=== PATIENT | male | born 1950 | race Caucasian/White ===

== ENCOUNTER 2018-06-09 20:26 | Observation (INO) | payer OTHER ==
--- NOTE | 2018-06-09 20:49 | EDPHY ---
H & P Stated Complaint: fall with sz, pt c/o L rib pain Time Seen by Provider: 06/09/18 20:35 HPI/ROS: CHIEF COMPLAINT: Left rib pain post seizure activity HISTORY OF PRESENT ILLNESS: 68-year-old male history of seizure disorder, in the ER with his roommates who describe breakthrough seizure this afternoon, witnessed, fell forward impacting his left ribs against a small refrigerator. He has had increasing amount of breakthrough seizures this week home and roommates express concern about him returning home as he has been compliant with medications and has had an increase in his breakthrough seizures. No head injury. No midline C-spine pain or injury. Currently answering questions appropriately. No incontinence. No oral trauma. PRIMARY CARE PROVIDER: REVIEW OF SYSTEMS: A ten point review of systems was performed and is negative with the exception of the items mentioned in the HPI PAST MEDICAL/SURGICAL HISTORY: Seizure disorder. Traumatic brain injury. Lamictal therapy. History of encephalopathy. SOCIAL HISTORY: denies alcohol use at time of incident PHYSICAL EXAM 1) GENERAL: Well-developed, well-nourished, alert and oriented. Appears to be in no acute distress. Answering questions appropriately. Smiling, making jokes appears well 2) HEAD: Normocephalic, atraumatic 3) HEENT: Pupils equal, round, reactive to light bilaterally. Negative Horners. Nasopharynx, oropharynx, clear. No deformity or angulation of nose. No septal hematoma. No rhinorrhea. No oral trauma. Ears bilaterally with normal tympanic membranes. No hemotympanum. No fluid or blood in the external auditory canal. No raccoon eyes. No Alamo sign. Poor dentition, TMJ bilaterally nontender, facial bones nontender including the zygomatic arch, maxilla mandible. 4) NECK: No cervical collar is on. Posterior cervical spine is nontender, no stepoff, no effusion. Full range of motion which does not elicit any midline cervical spine pain, no posterior midline tenderness, no step-off. 5) LUNGS: Clear to auscultation bilaterally, no wheezes, no rhonchi, no retractions. Tender to palpation left mid clavicular line with no crepitus No obvious signs of trauma. No flaring, no grunting. Moving symmetrically. No crepitus. 6) HEART: [Regular rate and rhythm, 7) ABDOMEN: No guarding, no rebound, no focal tenderness, no peritoneal signs, no signs of trauma, no ecchymosis 8) MUSCULOSKELETAL: Left forearm abrasion with no underlying osseous discomfort. Otherwise Moving all extremities, no focal areas of tenderness, no obvious trauma. 9) BACK:.No midline vertebral tenderness, no fluctuance, no step-off, no obvious trauma, no visual or palpable abnormality. 10) SKIN: No laceration. No abrasion 11) NEURO: Awake, alert, and oriented to person, place and time. Answers questions appropriately. There were no obvious focal neurologic abnormalities. No cerebellar dysfunction. Cranial nerves 2 through to 12 intact. Normal steady gait. Upper and lower extremities bilaterally with strength 5 / 5, reflexes 2+. DIFFERENTIAL DIAGNOSIS: In no particular order including but not limited to breakthrough seizure, cardiac dysrhythmia, OR, rib fracture, rib contusion - Personal History Current Tetanus/Diphtheria Vaccine: Yes - Medical/Surgical History Hx Asthma: No Hx Chronic Respiratory Disease: No Hx Diabetes: No Hx Cardiac Disease: No Hx Renal Disease: No Hx Cirrhosis: No Hx Alcoholism: Yes Hx HIV/AIDS: No Hx Splenectomy or Spleen Trauma: No Other PMH: TBI, seizures, etoh - Social History Smoking Status: Current every day smoker Constitutional: Initial Vital Signs Temperature (C) 36.6 C 06/09/18 20:28 Heart Rate 70 06/09/18 20:28 Respiratory Rate 20 06/09/18 20:28 Blood Pressure 160/98 H 06/09/18 20:28 O2 Sat (%) 93 06/09/18 20:28 O2 Delivery Mode Room Air Allergies/Adverse Reactions: No Known Allergies Allergy (Verified 06/09/18 20:31) Home Medications: Medication Instructions Recorded Nicotine [Nicoderm Cq 7 mg (*)] 7 mg TD DAILY 08/28/16 Simvastatin 40 mg PO HS 08/28/16 Topiramate [Topamax 100MG (*)] 250 mg PO DAILY 08/28/16 Topiramate [Topamax 100MG (*)] 350 mg PO HS 08/29/16 lamoTRIgine [LamICTAL 100 MG (*)] 100 mg PO DAILY #0 tab 09/02/16 lamoTRIgine [LamICTAL 100 MG (*)] 150 mg PO HS #30 tab 09/02/16 Medical Decision Making - Diagnostics Imaging Results: Imaging Impressions Ribs w/Chest X-Ray 06/09/18 20:45 Impression: 1. No active cardiopulmonary disease seen. 2. No evidence of left rib fracture. Images reviewed myself ED Course/Re-evaluation: 9:50 p.m.: Re-evaluation, patient is feeling well. The roommates the patient expressed concern over his increase in breakthrough seizures over the past week in the presence of being compliant with medications. They do not feel he can be safely discharged home. Case was discussed with secondary supervising physician Dr. Matthew in the ER. I spoke with the [facility] physician at this time was informed that the patient could stay at [facility]. 10:07 p.m.: Called emergently to the patient's bedside as he was actively seizing. Given Ativan. Will plan on admission. 10:14 p.m.: Consultation with hospitalist Dr. Coffman who has kindly agreed to admit patient - Data Points Laboratory Results: Laboratory Results 06/09/18 21:06 06/09/18 20:55 06/09/18 06/09/18 06/09/18 21:08 21:06 20:58 WBC 8.37 10^3/uL 10^3/uL (3.80-9.50) RBC 4.66 10^6/uL 10^6/uL (4.40-6.38) Hgb 12.7 g/dL L g/dL (13.7-17.5) Hct 40.5 % % (40.0-51.0) MCV 86.9 fL fL (81.5-99.8) MCH 27.3 pg L pg (27.9-34.1) MCHC 31.4 g/dL L g/dL (32.4-36.7) RDW 16.7 % H % (11.5-15.2) Plt Count 193 10^3/uL 10^3/uL (150-400) MPV 10.0 fL fL (8.7-11.7) Neut % (Auto) 76.8 % H % (39.3-74.2) Lymph % (Auto) 13.5 % L % (15.0-45.0) [place] % (Auto) 6.6 % % (4.5-13.0) Eos % (Auto) 1.9 % % (0.6-7.6) Baso % (Auto) 0.6 % % (0.3-1.7) Nucleat RBC Rel Count 0.0 % % (0.0-0.2) Absolute Neuts (auto) 6.43 10^3/uL 10^3/uL (1.70-6.50) Absolute Lymphs (auto) 1.13 10^3/uL 10^3/uL (1.00-3.00) Absolute Monos (auto) 0.55 10^3/uL 10^3/uL (0.30-0.80) Absolute Eos (auto) 0.16 10^3/uL 10^3/uL (0.03-0.40) Absolute Basos (auto) 0.05 10^3/uL 10^3/uL (0.02-0.10) Absolute Nucleated RBC 0.00 10^3/uL 10^3/uL (0-0.01) Immature Gran % 0.6 % % (0.0-1.1) Immature Gran # 0.05 10^3/uL 10^3/uL (0.00-0.10) Sodium Potassium Chloride Carbon Dioxide Anion Gap BUN Creatinine Estimated GFR Glucose Calcium POC Troponin I 0.00 ng/mL ng/mL 0.01 ng/mL ng/mL (0.00-0.08) (0.00-0.08) Lamotrigine Ethyl Alcohol 06/09/18 06/09/18 20:55 20:55 WBC RBC Hgb Hct MCV MCH MCHC RDW Plt Count MPV Neut % (Auto) Lymph % (Auto) [place] % (Auto) Eos % (Auto) Baso % (Auto) Nucleat RBC Rel Count Absolute Neuts (auto) Absolute Lymphs (auto) Absolute Monos (auto) Absolute Eos (auto) Absolute Basos (auto) Absolute Nucleated RBC Immature Gran % Immature Gran # Sodium 140 mEq/L mEq/L (135-145) Potassium 4.5 mEq/L mEq/L (3.3-5.0) Chloride 112 mEq/L H mEq/L (97-110) Carbon Dioxide 19 mEq/l L mEq/l (22-31) Anion Gap 9 mEq/L mEq/L (8-16) BUN 17 mg/dL mg/dL (7-23) Creatinine 1.3 mg/dL mg/dL (0.7-1.3) Estimated GFR 55 Glucose 96 mg/dL mg/dL (70-100) Calcium 9.1 mg/dL mg/dL (8.5-10.4) POC Troponin I Lamotrigine Pending Ethyl Alcohol < 10 mg/dL mg/dL (0-10) Medications Given: Discontinued Medications Lorazepam (Ativan Injection) 1 mg IVP ONCE ONE Stop: 06/09/18 22:16 Last Admin: 06/09/18 22:16 Dose: 1 mg Point of Care Test Results: Chemistry 06/09/18 06/09/18 21:08 20:58 POC Troponin I 0.00 ng/mL ng/mL 0.01 ng/mL ng/mL (0.00-0.08) (0.00-0.08) Departure - Departure Disposition: [facility] Acute Clinical Impression: Recurrent seizures, History of traumatic brain injury Condition: Fair
--- NOTE | 2018-06-09 21:07 | CPEKG ---
Heart Rate: 73 RR Interval: 822 P-R Interval: 184 QRSD Interval: 118 QT Interval: 400 QTC Interval: 441 P [place]: 73 QRS [place]: 19 T Wave [place]: -43 EKG Severity - ABNORMAL ECG - EKG Impression: SINUS RHYTHM EKG Impression: NONSPECIFIC INTRAVENTRICULAR CONDUCTION DELAY EKG Impression: INFERIOR INFARCT, AGE INDETERMINATE Electronically Signed By: Noelle Matthew 09-Jun-2018 22:53:25
[2018-06-09 21:13] LABS: PLATELET COUNT 193 10^3/uL (150-400)
[2018-06-09] MEDS ORDERED: LORazepam 2 MG/ML INJ ONE (22:11)
[2018-06-09] MEDS ORDERED: LORazepam 2 MG/ML INJ IVP ONE (22:15)
[2018-06-09] MEDS ORDERED: ACETAMINOPHEN 325 MG TAB PO PRN (22:23)
[2018-06-09] MEDS ORDERED: ONDANSETRON DISINTEGRATING 4 MG TAB PO PRN (22:23)
[2018-06-09] MEDS ORDERED: ONDANSETRON 4 MG/2 ML VIAL IVP PRN (22:23)
--- NOTE | 2018-06-09 23:52 | PDGENHP ---
History and Physical - Chief Complaint Seizure - History of Present Illness 68 yo M w/ hx of TBI and seizure d/o presents after a seizure. Patient is post- ictal during my evaluation an unable to provide additional history. History obtained from ED provider note. Per report, patient suffered a breakthrough seizure this afternoon. His roommates state he had a few other seizures this week as well. They think he has been compliant with his medications but cannot be sure. The patient himself cannot confirm his medications for me at this time. While in the ED the patient experienced a witnessed seizure. This was treated with lorazepam and aborted quickly. Case discussed with TRICIA Gutierrez, previous records reviewed. History Information - Allergies/Home Medication List Allergies/Adverse Reactions: No Known Allergies Allergy (Verified 06/09/18 20:31) Home Medications: Nicotine [Nicoderm Cq 7 mg (*)] 7 mg TD DAILY 08/28/16 [Last Taken Unknown] Simvastatin 40 mg PO HS 08/28/16 [Last Taken 08/27/16] Topiramate [Topamax 100MG (*)] 250 mg PO DAILY 08/28/16 [Last Taken Unknown] Topiramate [Topamax 100MG (*)] 350 mg PO HS 08/29/16 [Last Taken Unknown] I have personally reviewed and updated: family history, medical history - Past Medical History seizures Additional medical history: TBI - Surgical History Additional surgical history: Unable to obtain 2/2 AMS - Family History Additional family history: Unable to obtain 2/2 AMS - Social History Smoking Status: Current every day smoker Review of Systems Review of Systems: Unable to obtain 2/2 AMS Physical Exam Physical Exam: Temp Pulse Resp BP Pulse Ox 36.9 C 61 18 150/90 H 99 06/09/18 23:35 06/09/18 23:35 06/09/18 23:35 06/09/18 23:35 06/09/18 23:35 O2 (L/minute) 2 Constitutional: no apparent distress, appears nourished Eyes: PERRL, anicteric sclera Ears, Nose, Mouth, Throat: moist mucous membranes, no oral mucosal ulcers Cardiovascular: regular rate and rhythym, no murmur, rub, or gallop Respiratory: no respiratory distress, clear to auscultation Gastrointestinal: normoactive bowel sounds, soft, non-tender abdomen Skin: warm, normal color Musculoskeletal: no muscle tenderness, no joint effusions Neurologic: other (Post-ictal, minimally interactive but responds to voice and painful stimuli), No facial droop Psychiatric: encephalopathic, No interacting appropriately Lab Data & Imaging Review 06/09/18 21:06 06/09/18 20:55 WBC 8.37 10^3/uL (3.80-9.50) 06/09/18 21:06 RBC 4.66 10^6/uL (4.40-6.38) 06/09/18 21:06 Hgb 12.7 g/dL (13.7-17.5) L 06/09/18 21:06 Hct 40.5 % (40.0-51.0) 06/09/18 21:06 MCV 86.9 fL (81.5-99.8) 06/09/18 21:06 MCH 27.3 pg (27.9-34.1) L 06/09/18 21:06 MCHC 31.4 g/dL (32.4-36.7) L 06/09/18 21:06 RDW 16.7 % (11.5-15.2) H 06/09/18 21:06 Plt Count 193 10^3/uL (150-400) 06/09/18 21:06 MPV 10.0 fL (8.7-11.7) 06/09/18 21:06 Neut % (Auto) 76.8 % (39.3-74.2) H 06/09/18 21:06 Lymph % (Auto) 13.5 % (15.0-45.0) L 06/09/18 21:06 [place] % (Auto) 6.6 % (4.5-13.0) 06/09/18 21:06 Eos % (Auto) 1.9 % (0.6-7.6) 06/09/18 21:06 Baso % (Auto) 0.6 % (0.3-1.7) 06/09/18 21:06 Nucleat RBC Rel Count 0.0 % (0.0-0.2) 06/09/18 21:06 Absolute Neuts (auto) 6.43 10^3/uL (1.70-6.50) 06/09/18 21:06 Absolute Lymphs (auto) 1.13 10^3/uL (1.00-3.00) 06/09/18 21:06 Absolute Monos (auto) 0.55 10^3/uL (0.30-0.80) 06/09/18 21:06 Absolute Eos (auto) 0.16 10^3/uL (0.03-0.40) 06/09/18 21:06 Absolute Basos (auto) 0.05 10^3/uL (0.02-0.10) 06/09/18 21:06 Absolute Nucleated RBC 0.00 10^3/uL (0-0.01) 06/09/18 21:06 Immature Gran % 0.6 % (0.0-1.1) 06/09/18 21:06 Immature Gran # 0.05 10^3/uL (0.00-0.10) 06/09/18 21:06 Sodium 140 mEq/L (135-145) 06/09/18 20:55 Potassium 4.5 mEq/L (3.3-5.0) 06/09/18 20:55 Chloride 112 mEq/L (97-110) H 06/09/18 20:55 Carbon Dioxide 19 mEq/l (22-31) L 06/09/18 20:55 Anion Gap 9 mEq/L (8-16) 06/09/18 20:55 BUN 17 mg/dL (7-23) 06/09/18 20:55 Creatinine 1.3 mg/dL (0.7-1.3) 06/09/18 20:55 Estimated GFR 55 06/09/18 20:55 Glucose 96 mg/dL (70-100) 06/09/18 20:55 Calcium 9.1 mg/dL (8.5-10.4) 06/09/18 20:55 POC Troponin I 0.00 ng/mL (0.00-0.08) 06/09/18 21:08 Ethyl Alcohol < 10 mg/dL (0-10) 06/09/18 20:55 Imaging Review: Imaging Impressions Ribs w/Chest X-Ray 06/09/18 20:45 Impression: 1. No active cardiopulmonary disease seen. 2. No evidence of left rib fracture. Head CT 06/09/18 22:16 Impression: 1. Stable moderate central atrophy. 2. The basal ganglia are relatively small in volume bilaterally. 3. No hemorrhage, mass effect, or definite acute peripheral infarct. If symptoms worsen, additional imaging may be necessary. Findings discussed with Soo GLOVER at 23:04 hour, 06/09/2018. Assessment & Plan Assessment: 68 yo M w/ hx of TBI and seizure d/o presents with multiple seizures. Plan: 1. Seizure d/o with uncontrolled seizure activity - Multiple seizures this week including a witnessed GTC seizure while in the ED. Per the patient's most recent medication list he is on Lamictal and Topamax but I cannot confirm this with him at this time due to post-ictal state. - Admit for observation - Seizure precautions - Check Lamictal and Topamax levels - Neurology consult placed - Will Keppra load if seizes again 2. Hx TBI - Stable cerebral atrophy noted on admission CT Head. No acute changes on this study (personally interpreted). 3. L rib pain - XR without acute fracture, treat symptomatically. Diet - NPO pending improvement in mental status Code - Full Ppx - SCDs Dispo - Admit under observation status
[2018-06-10] MEDS ORDERED: LORazepam 2 MG/ML INJ IVP PRN ×2 (00:22→02:07)
[2018-06-10] MEDS ORDERED: levETIRAcetam 1000MG/NACL 100 ML IV ONE (00:22)
[2018-06-10 05:02] LABS: PLATELET COUNT 200 10^3/uL (150-400)
--- NOTE | 2018-06-10 08:19 | HOSPPROG ---
Hospitalist Progress Note Assessment/Plan: 68 yo M w/ hx of TBI and seizure d/o presents with multiple seizures. Today is my first encounter w the patient, chart reviewed. *Seizure -one in the ER and one on the floor -Lamictal and Topamax levels pending -loaded w Antonieta -appreciate Dr Stephens seeing Susanne -had a similar presentation 2 years ago -no clear cut infectious etiology -will need to f/u with [facility] de[facility] *hx of TBI -CT of head showed nothing acute, stable cerebral atrophay *Left rib pain -xray with nothing acute *Plan: let him eat, f/u with pending labs Subjective: Susanne said he is hungry and wants a cup of coffee, no further complaints. Objective: Vital Signs Temp Pulse Resp BP Pulse Ox 36.5 C 63 14 121/78 H 98 06/10/18 07:38 06/10/18 07:38 06/10/18 07:38 06/10/18 07:38 06/10/18 07:38 Laboratory Results 06/10/18 04:45 06/10/18 04:45 06/09/18 06/10/18 06/11/18 05:59 05:59 05:59 Intake Total 0 Balance 0 - Physical Exam Constitutional: no apparent distress, appears nourished, not in pain, chronically ill appearing Eyes: PERRL Ears, Nose, Mouth, Throat: hearing normal Cardiovascular: regular rate and rhythym Respiratory: no respiratory distress Gastrointestinal: normoactive bowel sounds Skin: warm Psychiatric: interacting appropriately, not anxious ICD10 Worksheet Patient Problems: Problems Problem Status Onset History of traumatic brain injury Acute Recurrent seizures Acute Altered mental status Acute
--- NOTE | 2018-06-10 08:35 | GCON ---
[f rep st] CONSULTATION NEUROLOGIC CONSULTATION REFERRING PHYSICIAN: Tucker Coffman MD HISTORY: The patient is 19-basof-ohg and is here for recurrent seizures and encephalopathy and inabi lity to be safe at home according to roommates. He has a history of traumatic brain injury at some p oint in the past, although we do not know the exact details. He is not followed in our system, [facility], he was here in 2016, with very similar presentation of some confusion with recurrent seizures and had a subtherapeutic level of lamotrigine which had been adjusted a little bit. He is not followed by any neurologist in my group, so we do not know how he has done since then, and his current ability to give detailed history is unreliable, nor is there any detail about what has happened over the las t few years. Basically, however, he reportedly is able to take his medicines fairly consistently and does not have frequent seizures. Within the last week, friends were reporting that he was having so me seizures without any clear-cut precipitating cause or any other associated symptoms and because of this, he came to the emergency room for evaluation. He had a seizure in the emergency room as well as 1 on the floor but none in the last 12 hours. The patient says he is not aware of any cause for t his but is a little bit uncertain on exactly what happened. He says he just does not remember the la st 24 hours. The nurse says that he has been a little bit confused and disoriented and she had to or ient him this morning to help. He is denying any pain or numbness or headache. REVIEW OF SYSTEMS: Otherwise, a 10 point review of systems was completed and unremarkable except for that noted above. PAST MEDICAL HISTORY: As outlined above, otherwise unremarkable. SOCIAL HISTORY: He does smoke apparently every day. He has a history of alcoholism but do not know his reliable alcohol history any time recently. He says he does not have any family in the area and cannot give me any history about family problems in the past. MEDICATIONS: He is on a statin therapy, so I presume he has hyperlipidemia, historically. Otherwise , he is reportedly on Topamax and lamotrigine at home of uncertain doses. It appears that most likel y the doses are in the range of 250 in the morning and 350 mg in the evening of Topamax and lamotrigi ne 100 in the morning and 150 at night. These are still fairly similar to what was documented a few years ago. ALLERGIES: None. PHYSICAL EXAMINATION: VITAL SIGNS: Blood pressure 121/78, pulse of 63, respirations 14, temperature 36.5. GENERAL: He is well developed, no acute distress. EYES: Clear. NECK: Supple. No bruits or masses. CARDIAC: Regular rate and rhythm. No murmur. NEURO: He is oriented to being in [facility] and in the hospital and he knows his name. He has decreased recent and remote memory. Concentrati on and attention are mildly diminished. His language skills are preserved and [facility] is reduced. Pupils are 2 mm and reactive. Funduscopic exam is normal. No visual field loss. E xtraocular movements are intact. Normal facial sensation and strength. The palate elevates symmetri wally. Tongue protrudes midline. Hearing is preserved. No weakness of head turning or shoulder shr ug. The motor examination reveals normal muscle bulk and tone with 5/5 strength and no abnormal move ments. Sensation is preserved for temperature and light touch. The coordination is preserved on fin gómez-to-nose with no ataxia. Romberg test is negative. The gait was not tested. The reflexes are 1+ and symmetric with no pathologic reflexes. LABORATORY STUDIES: Revealed white count of 10,000. Chemistry generally unremarkable, although he h ad mild metabolic acidosis when he came in. His toxicology shows negative alcohol level, lamotrigine and topiramate levels are pending. He had a head CT that is unremarkable. IMPRESSION: This gentleman has a history of traumatic brain injury and chronic seizure disorder whic h is probably a partial with secondary generalization based on review of the history and description of seizures relatively recently. This is quite similar to a presentation 2 years ago and most of his problem is related to breakthrough seizures on this occasion without any clear-cut identified metabo lic or infectious etiology to explain this. Compliance is always a question, but we generally have r eports that he takes his medicine. We will see if his blood levels suggest he is taking adequate dos ing. PLAN: For now my plan would be to put him on an estimated dose of what he is taking until we know de finitively his dosing and might need to adjust that. However, his followup will be through [facility] he is normally followed in their Neurology Department and he should have a close followup after d ischarge. Copy requested to: [facility] /[id number]/MODL
[2018-06-10] MEDS ORDERED: lamoTRIgine 100 MG TAB PO SCH (09:00)
[2018-06-10] MEDS ORDERED: lamoTRIgine 25 MG TAB PO SCH (09:00)
[2018-06-10] MEDS ORDERED: TOPIRAMATE 25 MG TAB PO SCH (09:00)
[2018-06-10] MEDS ORDERED: TOPIRAMATE 100 MG TAB PO SCH ×2 (09:00→21:00)
--- NOTE | 2018-06-10 09:39 | ASMTCASEMG ---
Living Arrangements What is your living Answers: Alone arrangement? Who do you live with? Type Of Residence What kind of residence do Answers: Apartment you live in? Discharge Plan Comments Coordination Status Comments Notes: Pt is a 68 y/o man w/ a hx of TBI and seizure d/o presenting after a seizure. Pt has a caregiver. PT and SPL has been ordered and awaiting recommendations. Needs are TBD at this time. CM to follow. Plan: TBD Date Signed: 06/10/2018 09:38 AM Electronically Signed By:LINNEA Pérez
[2018-06-10] MEDS: lamoTRIgine 100 MG TAB PO SCH ×2 (09:54→19:59)
[2018-06-10] MEDS: TOPIRAMATE 100 MG TAB PO SCH (10:11)
[2018-06-10] MEDS ORDERED: ATORVASTATIN CALCIUM 20 MG TAB PO SCH (21:00)
[2018-06-11] MEDS: lamoTRIgine 100 MG TAB PO SCH (07:45)
[2018-06-11] MEDS: TOPIRAMATE 100 MG TAB PO SCH (07:46)
[2018-06-11 07:53] VITALS: BP 129/86
--- NOTE | 2018-06-11 08:20 | NEUROPROG ---
Assessment: Total unit time of 25 min. The patient has seizure disorder with uncertain compliance and blood levels pending, but we have him back on his medication which I would continue and he is likely to be able to be discharged back to his living facility of someone who knows him well can confirm he is at his baseline. He then follows up with [facility]. This is something I recommend occur within the next 2 weeks given the challenges he has recently faced. I will sign off. Please contact me with any additional questions. Subjective: The patient is reporting that he has had no seizures. His nurse confirms this. He is doing a little bit better but still mildly confused which is probably close to his baseline. There has been no family members are anyone in the hospital who actually knows him very well that I am aware of. However, he has roommates. Objective: Vital Signs Temp Pulse Resp BP Pulse Ox 36.2 C 74 18 129/86 H 92 06/11/18 07:53 06/11/18 07:53 06/11/18 07:53 06/11/18 07:53 06/11/18 07:53 Laboratory Results 06/10/18 04:45 06/10/18 04:45 06/10/18 06/11/18 06/12/18 05:59 05:59 05:59 Intake Total 0 400 Output Total 1150 Balance 0 -750 He is alert but a little bit challenged by complex information and discussions. He is generally oriented and able to follow commands but I have the general sense of some mild cognitive impairment without any delirium. His nurse said that he was a little bit restless this morning and needed to be reassured a lot. He is hoping to get out of the hospital. His serum blood levels are not available yet. Allergies/Adverse Reactions: No Known Allergies Allergy (Verified 06/09/18 20:31)
--- NOTE | 2018-06-11 08:53 | HOSPPROG ---
Hospitalist Progress Note Assessment/Plan: 68 yo M w/ hx of TBI and seizure d/o presents with multiple seizures. *Seizure -one in the ER and one on the floor -Lamictal and Topamax levels pending -loaded w Ketairqra yesterday -no further seizures -will need to f/u with [facility] de[facility] *hx of TBI -CT of head showed nothing acute, stable cerebral atrophay *Left rib pain -xray with nothing acute *Plan: dc home w close f/u with [facility] Subjective: Susanne feels fine, ate a good breakfast; anxious to go home Objective: Vital Signs Temp Pulse Resp BP Pulse Ox 36.2 C 74 18 129/86 H 92 06/11/18 07:53 06/11/18 07:53 06/11/18 07:53 06/11/18 07:53 06/11/18 07:53 Laboratory Results 06/10/18 04:45 06/10/18 04:45 06/10/18 06/11/18 06/12/18 05:59 05:59 05:59 Intake Total 0 400 Output Total 1150 Balance 0 -750 - Physical Exam Constitutional: no apparent distress, appears nourished, not in pain Eyes: PERRL Ears, Nose, Mouth, Throat: hearing normal Cardiovascular: regular rate and rhythym Respiratory: no respiratory distress Gastrointestinal: normoactive bowel sounds Skin: warm Neurologic: AAOx3 Psychiatric: interacting appropriately, poor memory ICD10 Worksheet Patient Problems: Problems Problem Status Onset History of traumatic brain injury Acute Recurrent seizures Acute Altered mental status Acute
--- NOTE | 2018-06-11 11:02 | ASMTDCNOTE ---
Case Management Discharge Discharge Order Complete? Answers: Yes Patient to Obtain Answers: via Family Medications Transportation Arranged Answers: Family/Friends Transport will Pick (Date 06/11/2018 02:00 PM & Time) EMTALA Complete Answers: No Case Management Transport Answers: No Form Complete Faxed Final Orders Answers: No Agency/Facility Transfer Answers: No Report Printed & Faxed to Receiving Agency Family Notified Answers: Yes Discharge Comments Notes: Pts case discussed w/ Idalmis Adrian NP and SHILPI Travis regarding d/c POC. CM met w/ pt for dispo planning. Pt reports that he has no needs at this time. Pt reports that he can ambulate safetly. Pt reports that he lives w/ his friend Armand that he has known for 25 years. CM spoke to Armand. Armand reports that he can come pick pt up around 2PM today. Armand reports that he helps pt out along w/ two other friends. Pt will need to follow up outpatient w/ [facility]. CM left a msg for pts friend Sanna. CM spoke to pts friend Jacey and provided updates. No other needs identified at this time. CM available for changes. Plan: Independent Date Signed: 06/11/2018 11:01 AM Electronically Signed By:LINNEA Pérez
--- NOTE | 2018-06-11 11:03 | ASMTLACE ---
LACE Length of stay for Answers: 2 days current admission Acuity / Level of Answers: No Care: Did the patient have an inpatient admission? Comorbidities - select Answers: Other Notes: Seizure disorder; TBI all that apply # of Emergency department Answers: 1-2 visits in the last 6 months Score: 4 Date Signed: 06/11/2018 11:01 AM Electronically Signed By:LINNEA Pérez
--- NOTE | 2018-06-11 12:12 | GDS ---
[f rep st] DISCHARGE SUMMARY DISCHARGE DIAGNOSES: 1. Seizure. 2. History of total brain injury. 3. Left rib pain. CONSULTATION: Dr. Delfino Stephens. Briefly, Susanne Bray is a 68-year-old gentleman who presented to the emergency room with confusion and recurrent seizures. He is followed by a neurologist at [facility]. The patient said that he has been ta celia his medications for HIS seizures consistently. His friends were reporting that he was having so me seizures without any clear-cut precipitating cause. He had a seizure in the emergency room, as we ll as well as one on the floor, but he has not had any further. He is on Topamax and Lamictal. Thes e labs were checked and are pending. Today, he is being discharged home with recommendation of close followup with his [facility] physician. HOSPITAL COURSE: 1. Seizure. He was loaded with Keppra yesterday. He has had none further. His Lamictal and Topama x levels are pending. 2. History of total brain injury. He had a CT of his head which showed nothing acute. He has stabl e cerebral atrophy. 3. Left rib pain. No further complaints. DISCHARGE CONDITION: Stable. Blood pressure is 129/86, O2 sats on room air 92%, respiratory rate is 18, pulse 74, temperature 36.2 Celsius. MEDICATIONS AT DISCHARGE: Please see the EMR. DISCHARGE INSTRUCTIONS: 1. Further followup with his neurologist in the next 1-2 weeks. 2. To follow up with his pending labs. 3. If he develops further seizures, to return to the nearest emergency room facility. /[id number]/MODL
== END 2018-06-11 14:13 | disposition home health service (06) ==
LOC: F3E 23:56
PROVIDERS: ADMIT Student in an Organized Health Care Education/Training Program; ATTEND Student in an Organized Health Care Education/Training Program
DX: R56.9 Unspecified convulsions (principal); Z87.820 Personal history of traumatic brain injury; R07.81 Pleurodynia; F17.210 Nicotine dependence, cigarettes, uncomplicated
CPT/HCPCS: 70450; 71101; 92610; 93005; 97161; 99285; G0378; G8978; G8979; G8980; J1953; J2060; 80175-90; 84484-PO; G0480

== ENCOUNTER 2018-10-09 22:43 | Emergency (ER) | payer OTHER ==
[2018-10-09] MEDS ORDERED: NS 1,000 ML IV ONE (22:58)
--- NOTE | 2018-10-09 23:05 | EDPHY ---
H & P Stated Complaint: "sleeping too much today", hx seizures, missed seizure med today Time Seen by Provider: 10/09/18 23:01 HPI/ROS: HPI CHIEF COMPLAINT: Confusion, increased sleepiness HISTORY OF PRESENT ILLNESS: This is a 68-year-old male, history of seizures with seizure disorder, history traumatic brain injury, who is been admitted to this hospital for acute encephalopathy in the past thought to due to postictal State and seizures. Patient presents emergency room by private vehicle with friends as the report that he normally is very active during the day however when he returned home from work this evening they noticed he did not get out of bed today was in bed all day. The car but was not vacuumed. And his morning meds were not taken. This concerned them. They checked on him. He usually likes to watch football there was a football game on this evening however he declined watch to gaining did not get out of bed. They felt he was more slow than normal and confused so they brought him to the emergency room. Of note additionally the patient reports that he fell on Saturday with left arm striking the ground, and hitting his head. Denies headache. Denies chest pain Patient was last seen normal yesterday. Upon arrival to the emergency room is alert and orient times 0. He does not know the date. He does not know the president. He does not know his date of or address. Roommates at bedside report this is unusual for him. He normally knows who the president is and is date of . Past Medical History: TBI, encephalopathy in the past, seizures with seizure disorder Past Surgical History: No recent surgery Social History: Smokes tobacco 1-2 packs per day. No alcohol. No drugs. Lives with 2 roommates locally in [place]. Family History: Noncontributory ROS REVIEW OF SYSTEMS: 10 Systems were reviewed and negative with the exception of the elements mentioned in the history of present illness. Exam Constitutional confused. triage nursing summary reviewed, vital signs reviewed , awake/alert. Eyes normal conjunctivae and sclera, EOMI, PERRLA. HENT normal inspection, atraumatic, moist mucus membranes, no epistaxis, neck supple/ no meningismus, no raccoon eyes. Respiratory clear to auscultation bilaterally, normal breath sounds, no respiratory distress, no wheezing. Cardiovascular rate normal, regular rhythm, no murmur, no edema, distal pulses normal. Gastrointestinal soft, non-tender, no rebound, no guarding, normal bowel sounds, no distension, no pulsatile mass. Genitourinary no CVA tenderness. Musculoskeletal no midline vertebral tenderness, full range of motion, no calf swelling, no tenderness of extremities, no meningismus, good pulses, neurovascularly intact. Skin pink, warm, & dry, no rash, skin atraumatic. Neurologic confused alert or times 0. moves all 4 extremities equally, motor intact, sensory intact, CN II-XII intact, normal cerebellar, normal vision, normal speech. Psychiatric normal mood/affect. Heme/Lymph/Immune no lymphadenopathy. Differential Diagnosis: Includes but is not limited to in a particular order intracranial bleed, subdural, traumatic subarachnoid, skull fracture, seizure, postictal state, ongoing seizures, electrolyte disturbance, dehydration, infection Medical Decision Making: Plan for this patient CT scan head without contrast, chest x-ray, EKG, blood work, most likely admission for acute encephalopathy. Rule out subdural. Re-evaluation: EKG interpretation by me on record in [employer] system. Impression time of [id number], sinus rhythm rate of 72 nonspecific intraventricular conduction delay present. When I compare this to his old EKG 06/09/2018 is unchanged morphology. No ST elevation. No ST depression. This is unchanged from the patient's previous EKG dated 06/09/2018. Patient noted have elevated D-dimer 7.50. The patient's mediastinum on his chest x-ray is somewhat wide. Right heart border is abnormal. Plant for CT angiogram given the patient's positive D-dimer. Extensive smoking history. I wonder if his D-dimer is elevated due to cancer. PE unlikely. CT scan head without contrast negative for acute bleed. Chest x-ray reviewed by myself. Questionable pulmonary nodule left lung field. Left lung base. Will proceed with CT angio given +DDIMER Extensive smoking hx CT angiogram of the chest: Negative for pulmonary embolism. No pneumonia. No lung mass. Please see full details. This patient is a [facility] patient. I spoke with [facility] they would like to transfer the patient to their facility for further monitoring and evaluation of altered mental status. The patient has been accepted by Dr. Tao. Appropriate transfer be set up. EMTALA form will be filled out. CT scan head without contrast negative for acute bleed CT angiogram of the chest shows no evidence of PE. Patient's D-dimer was positive 7.5. Patient EKG no signs of acute ischemia Patient's troponin negative Patient be admitted the hospital for altered mental status post Whipple postictal state. Re-evaluation at this time 12:32 a.m. Patient still confused alert and orient times 0. Possible postictal state from seizures today. Patient has no fever. Patient appears well nontoxic Patient is a [facility] patient be appropriately transferred. Source: Patient, Other - Personal History Current Tetanus Diphtheria and Acellular Pertussis (TDAP): No - Medical/Surgical History Hx Asthma: No Hx Chronic Respiratory Disease: No Hx Diabetes: No Hx Cardiac Disease: No Hx Renal Disease: No Hx Cirrhosis: No Hx Alcoholism: Yes Hx HIV/AIDS: No Hx Splenectomy or Spleen Trauma: No Other PMH: TBI, seizures, etoh - Social History Smoking Status: Current every day smoker Constitutional: Initial Vital Signs Temperature (C) 36.7 C 10/09/18 22:46 Heart Rate 77 10/09/18 22:46 Respiratory Rate 17 10/09/18 22:46 Blood Pressure 121/81 H 10/09/18 22:46 O2 Sat (%) 95 10/09/18 22:46 O2 Delivery Mode Room Air Allergies/Adverse Reactions: No Known Allergies Allergy (Verified 10/09/18 22:49) Home Medications: Medication Instructions Recorded Simvastatin 40 mg PO HS 08/28/16 Topiramate [Topamax 100MG (*)] 300 mg PO HS 08/28/16 Topiramate [Topamax 100MG (*)] 250 mg PO DAILY 08/29/16 lamoTRIgine [LamICTAL 100 MG (*)] 150 mg PO BID 06/10/18 Medical Decision Making - Diagnostics Imaging Results: Imaging Impressions Chest X-Ray 10/09/18 22:58 Impression: No acute findings in the chest. Head CT 10/09/18 22:59 Impression: No acute intracranial findings. Mark Elvia was notified of these findings by telephone at 11:27 PM on 2017 Chest/Thorax CTA 10/09/18 23:42 Impression: 1. No evidence for acute pulmonary embolism. 2. Mild centrilobular emphysema and peribronchial thickening which can be seen in bronchitis or asthma. 3. Right hilar lymphadenopathy may be reactive, however malignancy cannot be excluded and continued radiographic surveillance is warranted to monitor and confirm resolution. Mark Gan was notified of these findings by telephone at 12:16 AM on 2017 - Data Points Laboratory Results: Laboratory Results 10/09/18 23:06 10/09/18 23:06 10/10/18 10/09/18 10/09/18 00:00 23:21 23:06 WBC RBC Hgb Hct MCV MCH MCHC RDW Plt Count MPV Neut % (Auto) Lymph % (Auto) Villalba % (Auto) Eos % (Auto) Baso % (Auto) Nucleat RBC Rel Count Absolute Neuts (auto) Absolute Lymphs (auto) Absolute Monos (auto) Absolute Eos (auto) Absolute Basos (auto) Absolute Nucleated RBC Immature Gran % Immature Gran # D-Dimer 7.50 ug/mLFEU H ug/mLFEU (0.00-0.50) Sodium Potassium Chloride Carbon Dioxide Anion Gap BUN Creatinine Estimated GFR Glucose Calcium Magnesium Total Bilirubin Conjugated Bilirubin Unconjugated Bilirubin AST ALT Alkaline Phosphatase POC Troponin I 0.01 ng/mL ng/mL (0.00-0.08) NT-Pro-B Natriuret Pep Total Protein Albumin Lipase Lamotrigine Pending Topiramate Pending 10/09/18 10/09/18 23:06 23:06 WBC 9.33 10^3/uL 10^3/uL (3.80-9.50) RBC 4.55 10^6/uL 10^6/uL (4.40-6.38) Hgb 13.2 g/dL L g/dL (13.7-17.5) Hct 41.1 % % (40.0-51.0) MCV 90.3 fL fL (81.5-99.8) MCH 29.0 pg pg (27.9-34.1) MCHC 32.1 g/dL L g/dL (32.4-36.7) RDW 15.2 % % (11.5-15.2) Plt Count 239 10^3/uL 10^3/uL (150-400) MPV 9.5 fL fL (8.7-11.7) Neut % (Auto) 70.4 % % (39.3-74.2) Lymph % (Auto) 19.0 % % (15.0-45.0) Villalba % (Auto) 7.2 % % (4.5-13.0) Eos % (Auto) 2.6 % % (0.6-7.6) Baso % (Auto) 0.6 % % (0.3-1.7) Nucleat RBC Rel Count 0.0 % % (0.0-0.2) Absolute Neuts (auto) 6.57 10^3/uL H 10^3/uL (1.70-6.50) Absolute Lymphs (auto) 1.77 10^3/uL 10^3/uL (1.00-3.00) Absolute Monos (auto) 0.67 10^3/uL 10^3/uL (0.30-0.80) Absolute Eos (auto) 0.24 10^3/uL 10^3/uL (0.03-0.40) Absolute Basos (auto) 0.06 10^3/uL 10^3/uL (0.02-0.10) Absolute Nucleated RBC 0.00 10^3/uL 10^3/uL (0-0.01) Immature Gran % 0.2 % % (0.0-1.1) Immature Gran # 0.02 10^3/uL 10^3/uL (0.00-0.10) D-Dimer Sodium 145 mEq/L mEq/L (135-145) Potassium 4.1 mEq/L mEq/L (3.3-5.0) Chloride 117 mEq/L H mEq/L (97-110) Carbon Dioxide 19 mEq/l L mEq/l (22-31) Anion Gap 9 mEq/L mEq/L (6-14) BUN 17 mg/dL mg/dL (7-23) Creatinine 1.3 mg/dL mg/dL (0.7-1.3) Estimated GFR 55 Glucose 83 mg/dL mg/dL (70-100) Calcium 9.2 mg/dL mg/dL (8.5-10.4) Magnesium 2.1 mg/dL mg/dL (1.6-2.3) Total Bilirubin 0.4 mg/dL mg/dL (0.1-1.4) Conjugated Bilirubin 0.3 mg/dL mg/dL (0.0-0.5) Unconjugated Bilirubin 0.1 mg/dL mg/dL (0.0-1.1) AST 21 IU/L IU/L (17-59) ALT 17 IU/L L IU/L (21-72) Alkaline Phosphatase 97 IU/L IU/L (38-126) POC Troponin I NT-Pro-B Natriuret Pep 454 pg/mL H pg/mL (0-125) Total Protein 7.4 g/dL g/dL (6.3-8.2) Albumin 4.4 g/dL g/dL (3.5-5.0) Lipase 90 IU/L IU/L (23-300) Lamotrigine Topiramate Medications Given: Discontinued Medications Sodium Chloride (Ns) 1,000 mls @ 0 mls/hr IV EDNOW ONE; Wide Open PRN Reason: Protocol Stop: 10/09/18 22:59 Last Admin: 10/09/18 23:20 Dose: 1,000 mls Point of Care Test Results: Chemistry 10/09/18 23:21 POC Troponin I 0.01 ng/mL ng/mL (0.00-0.08) Departure - Departure Disposition: Acute Care Hospital [facility] Clinical Impression: Altered mental status Qualifiers: Altered mental status type: unspecified Qualified Code(s): R41.82 - Altered mental status, unspecified Condition: Fair
[2018-10-09 23:20] LABS: PLATELET COUNT 239 10^3/uL (150-400)
[2018-10-09] MEDS ORDERED: IOPAMIDOL (ISOVUE 370) 100 ML BTL IV ONE (23:45)
[2018-10-10 01:14] VITALS: BP 130/86
--- NOTE | 2018-10-11 06:16 | CPEKG ---
Test Reason : OPEN Blood Pressure : / mmHG Vent. Rate : 072 BPM Atrial Rate : 072 BPM P-R Int : 155 ms QRS Dur : 124 ms QT Int : 413 ms P-R-T Axes : 065 036 -43 degrees QTc Int : 453 ms Sinus rhythm Nonspecific intraventricular conduction delay Inferior infarct, age indeterminate Confirmed by Simon Lazo ([id number]) on 10/11/2018 6:16:09 AM Referred By: Confirmed By:Simon Lazo
== END 2018-10-10 01:10 | disposition short-term general hospital (02) ==
LOC: UNDOADMOB 10-10 00:17
DX: R41.82 Altered mental status, unspecified (principal); R07.9 Chest pain, unspecified; G40.909 Epilepsy, unspecified, not intractable, without status epilepticus; F17.200 Nicotine dependence, unspecified, uncomplicated
CPT/HCPCS: 70450; 71045; 71275; 93005; 99285; Q9967; 80175-90; 84484-PO